=== PATIENT | female | born 1970 | race Caucasian/White ===

== ENCOUNTER 2019-08-15 12:30 | Emergency (ER) | payer MEDICARE, MEDICAID ==
--- NOTE | 2019-08-15 12:38 | ER Document Report ---
ED Medical Screen (RME) - General Chief Complaint: Abscess Stated Complaint: ABSCESS ON BACK OF HEAD Time Seen by Provider: 08/15/19 12:34 Mode of Arrival: Ambulatory Information source: Patient Notes: This 49-year-old female presents to the emergency is however met with a large abscess to the base of her scalp on the right side. She reports is been there approximately 3 weeks. Large scab in the middle of erythema. Denies fever vomiting diarrhea, patient has cochlear implants. Reports her whole head is here hurting I have greeted and performed a rapid initial assessment of this patient. A comprehensive ED assessment and evaluation of the patient, analysis of test results and completion of the medical decision making process will be conducted by additional ED providers. Dictation of this chart was performed using voice recognition software; therefore, there may be some unintended grammatical errors. - Related Data Allergies/Adverse Reactions: Penicillins Allergy (Verified 08/15/19 12:34) Physical Exam - Vital signs Vitals: Temp Pulse Resp BP Pulse Ox 98.0 F 77 20 144/85 H 98 08/15/19 12:34 08/15/19 12:34 08/15/19 12:34 08/15/19 12:34 08/15/19 12:34 Course - Vital Signs Vital signs: Temp Pulse Resp BP Pulse Ox 98.0 F 77 20 144/85 H 98 08/15/19 12:34 08/15/19 12:34 08/15/19 12:34 08/15/19 12:34 08/15/19 12:34
[2019-08-15] MEDS ORDERED: LIDOCAINE 1% INJ-PF (10 MG/ML) 30 ML SDV INJ ONE (18:16)
[2019-08-15] MEDS ORDERED: SODIUM BICARBONATE 4.2% INJ (2.5 MEQ/5 ML) VIAL INJ ONE (18:17)
[2019-08-15] MEDS ORDERED: SULFAMETHOXAZOLE/TRIMETHOPRIM 800-160 MG TABLET PO ONE (18:18)
--- NOTE | 2019-08-15 18:23 | ER Document Report ---
ED General - General Chief Complaint: Abscess Stated Complaint: ABSCESS ON BACK OF HEAD Time Seen by Provider: 08/15/19 12:34 Mode of Arrival: Ambulatory TRAVEL OUTSIDE OF THE [place] IN LAST 30 DAYS: No - Related Data Allergies/Adverse Reactions: Penicillins Allergy (Verified 08/15/19 12:34) Home Medications: lamictal. trintellix. abilify. buspirone. lipitor. synthroid. trazadone. multivitamin Past Medical History - General Information source: Patient - Social History Smoking Status: Current Every Day Smoker Chew tobacco use (# tins/day): No Frequency of alcohol use: None Drug Abuse: None Family History: Other - Not reviewed Patient has suicidal ideation: No Patient has homicidal ideation: No Psychiatric Medical History: Reports: Hx Depression Past Surgical History: Reports: Hx Genitourinary Surgery - tbl Physical Exam - Vital signs Vitals: Temp Pulse Resp BP Pulse Ox 98.0 F 77 20 144/85 H 98 08/15/19 12:34 08/15/19 12:34 08/15/19 12:34 08/15/19 12:34 08/15/19 12:34 - Notes Notes: Patient presents to the emergency department complaining of a abscess on the back of her head this been on for about 2 weeks. She had no history of trauma or bites to the area. She is a heavy drainage and says she is not been scratching at it even though it is itchy. She does have a history of abscesses and said several abscesses removed from her face. Denies any fevers associated with this she denies any new head diet. She has no pain with movement of her head Past medical history is significant for thyroid disease and prediabetes Social history does smoke but does not drink. Tetanus is up-to-date Last menstrual period was beginning of August normal and on time. Review of systems as above due to limit due to patient complaint PHYSICIAN EXAM -vital signs are noted triage note and note from triage reviewed of note this is a problem focused exam GENERAL: Well-appearing, well-nourished and in __no acute distress____ HEAD: Atraumatic, normocephalic. She has a fluctuant area on the back of the head appears have a slightly necrotic center. It is fluctuance with some surrounding redness. No other lesions in the scalp. There is no tenderness in the midline of the neck. Neuro oriented x4 and moves all 4 extremities spontaneously Course - Vital Signs Vital signs: Temp Pulse Resp BP Pulse Ox 98.2 F 74 16 136/91 H 100 08/15/19 19:34 08/15/19 19:34 08/15/19 19:34 08/15/19 19:34 08/15/19 19:34 - Laboratory Laboratory results interpreted by me: 08/15/19 18:16 POC Glucose 114 H Procedures - Incision and Drainage Head Time completed: 19:00 Type: Complex Anesthetic type: 1% Lidocaine, Other Blade size: 11 I&D procedure: Betadine prep applied Incision Method: Incision made by scalpel Notes: 08/16/19 20:52 Incision made in area of fluctuance. Small amount of pus wound. Loculations were broken up. Irrigated with normal saline and loosely packed with gauze patient tolerated procedure well Discharge - Discharge Clinical Impression: Cellulitis and abscess of head Condition: Good Disposition: HOME, SELF-CARE Instructions: Abscess ([facility]), MRSA Cellulitis ([facility]), Post Incision and Drainage, Trimethoprim-Sulfa ([facility]) Additional Instructions: Please review the discharge instructions, they will tell you about your disease/injury and what you need to return to the ED for Return to the ED if you feel worse or can follow-up with your family doctor Remove the packing in 24 hours clean wound twice a day with peroxide and a Q-tip Remove the dressing in 48 hours and check the area of redness. Return to the e mergency department if the redness is getting worse or if you fever it lasts for more than 2 days your blood pressure was elevated today needs to be rechecked again in 1 to 2 weeks to determine if need to be on medication or have your medications adjusted. Untreated hypertension can cause heart attack stroke and kidney failure Follow-up in the clinic in 1 to 2 weeks to recheck your blood pressure Start bathing once a week with Hibiclens soap Leave the Curlex dressing on your head until the morning Prescriptions: Sulfamethoxazole/Trimethoprim [Bactrim Ds Tablet] 1 each PO BID #10 tablet Forms: Elevated Blood Pressure
[2019-08-15] MEDS ORDERED: SODIUM BICARBONATE 4.2% INJ (2.5 MEQ/5 ML) VIAL ONE (18:42)
[2019-08-15 19:35] VITALS: BP 136/91
== END 2019-08-15 19:35 | disposition home or self-care (01) ==
LOC: ER 12:30 → EDSEX 12:30 → ER 19:35
DX: L02.811 Cutaneous abscess of head [any part, except face] (principal); L03.811 Cellulitis of head [any part, except face]; F17.200 Nicotine dependence, unspecified, uncomplicated; F32.9 Major depressive disorder, single episode, unspecified; Z79.899 Other long term (current) drug therapy; Z88.0 Allergy status to penicillin
CPT/HCPCS: 99283; 82962; 10060; A6266; J3490; A9270